=== PATIENT | male | born 1960 | race Caucasian/White ===

== ENCOUNTER → 2017-11-23 | Outpatient (CLI) | payer BC ==
--- NOTE | 2017-11-23 17:38 | CT ---
EXAMINATION TYPE: CT angio chest DATE OF EXAM: 11/23/2017 5:29 PM COMPARISON: NONE HISTORY: Left sided chest pain for [address] DLP: 471.4 mGycm Automated exposure control for dose reduction was used. CONTRAST: CTA scan of the thorax is performed with IV Contrast, patient injected with 76.5 mL of Omnipaque 350, pulmonary embolism protocol. There are 3-D post processed images.. FINDINGS: The lungs are clear of infiltrate. There is no evidence of a pulmonary mass. There is no pleural effu manish. Heart size is normal. There is no pericardial effusion. There is no mediastinal adenopathy. There are no hilar masses. Thoracic aorta appears normal. There is no evidence of aneurysm or dissection. There is normal contrast opacification of the pulmonary arteries. I see no filling defects. There is mild spurring in the thoracic spine. IMPRESSION: NEGATIVE CT ANGIOGRAM OF THE CHEST. NO EVIDENCE OF PULMONARY EMBOLISM.
== END | disposition home or self-care (01) ==
LOC: RADCTMAIN 17:01
PROVIDERS: ATTEND Internal Medicine Critical Care Medicine
DX: R07.9 Chest pain, unspecified (principal)
CPT/HCPCS: 71275; Q9967

== ENCOUNTER 2018-07-01 10:51 | Day surgery (SDC) | payer BC ==
[2018-06-25 11:43] VITALS: BMI 28.7
[~2018-07-01 10:51] MED LIST: ALBUTEROL NEB (CONC) 2.5 MG/0.5 ML INHALATION ONE; LACTATED RINGERS 1,000 ML IV ONE; LACTATED RINGERS 1,000 ML IV SCH; LIDOCAINE 2% (PF) 20 MG/ML 2 ML AMP INHALATION ONE; LIDOCAINE VISCOUS 2% 15 ML CUP MUCOUS MEM ONE
[2018-07-01 11:13] VITALS: TEMP 97.6
[2018-07-01] MEDS ORDERED: LIDOCAINE 1% 20 ML VIAL (10MG/ML) FOR IV START INTRADERMA ONE (11:34)
[2018-07-01] MEDS ORDERED: PROPOFOL 10 MG/ML 20 ML VIAL IV ONE (12:00)
[2018-07-01] MEDS ORDERED: LIDOCAINE 1% INJ 10MG/ML (20 ML MDV) ONE (12:00)
[2018-07-01 12:47] VITALS: RESP 16
--- NOTE | 2018-07-01 12:48 | PCN ---
PROCEDURE NOTE PROCEDURES: Bronchoscopy, airway examination, therapeutic lavage, BAL right middle lobe. PREOPERATIVE DIAGNOSIS: Shortness of breath and sensation of endobronchial obstruction, particularly on the left side. POSTOPERATIVE DIAGNOSIS: Shortness of breath and sensation of endobronchial obstruction, particularly on the left side. PROCEDURE: There was informed consent. There was universal timeout. The patient's procedure was done in room #1 of the endoscopy suite. [employer] provided unconscious sedation and general anesthesia. After the patient was adequately sedated being fully monitored, the bronchoscope was inserted through the right nostril. It passed through the right nasopharynx into the oropharynx. From there into the hypopharynx. The hypopharyngeal structures including anterior commissure, true cords, false cords, arytenoids, piriform sinuses right and left, vallecula and epiglottis all appeared normal. There was some crowding of the tissues down there. After topicalization, the bronchoscope was pushed through the glottic opening into the trachea. Trachea appeared relatively normal, although there were some secretions noted in the trachea. They were suctioned without difficulty. The trachea summer was sharp. Also of note was the fact that there was some tracheal collapsibility. Next, after topicalization of the right and left mainstem, the right upper lobe and its 3 segments, the right middle lobe and its 2 segments, the right lower lobe and its 5 segments, left upper lobe proper and its 2 segments, the lingula and its 2 segments and left lower lobe and its 4 segments were all evaluated. There was no endobronchial mass or tumor. There was no obstruction. There was some thin to thick secretions noted throughout. They were mostly purulent looking. They were noted more on the right than on the left side. There was mild bronchial erythema and hyperemia. We wedged the bronchoscope into the right middle lobe. The BAL took place. The patient tolerated the procedure well and the bronchoscope was withdrawn. There was no bleeding. The patient tolerated the procedure well. MMODL / IJN: [id number] /
[2018-07-01 13:02] VITALS: BP 125/68; PULSE 67
[2018-07-01 17:37] LABS: Appearance,BF Hazy; Color,BF Colorless; Nucleated Cells, Body Fluid 40 /uL; RBC, Body Fluid 655 /uL
[2018-07-01 19:33] LABS: Mononuclear WBC,Body Fluid 31 %; Polynuclear WBC,Body Fluid 34 %; Total Cells Counted,Body Fluid 100
== END 2018-07-01 13:10 | disposition home or self-care (01) ==
LOC: ORWHC2ENDO 10:51
PROVIDERS: ATTEND Internal Medicine Critical Care Medicine
DX: R06.02 Shortness of breath (principal); R09.89 Other specified symptoms and signs involving the circulatory and respiratory systems; R07.9 Chest pain, unspecified; J45.909 Unspecified asthma, uncomplicated; M48.00 Spinal stenosis, site unspecified; K58.9 Irritable bowel syndrome, unspecified; G47.30 Sleep apnea, unspecified; K21.9 Gastro-esophageal reflux disease without esophagitis; Z99.89 Dependence on other enabling machines and devices; Z79.51 Long term (current) use of inhaled steroids; Z79.899 Other long term (current) drug therapy; Z88.5 Allergy status to narcotic agent
CPT/HCPCS: 94640; 87798 ×3; 87496; 87498; 87529 ×2; 88108; 88305; 89050; 87252; 87502; 87634; 87070; 87205; 87116; 87102; 87206; 31624; J2001 ×2; J2704

== ENCOUNTER → 2018-12-15 | Outpatient (CLI) | payer BC ==
--- NOTE | 2018-12-16 01:40 | US ---
EXAMINATION TYPE: US scrotum with doppler. TECHNIQUE: Grayscale and color Doppler Duplex imaging performed of the scrotum. DATE OF EXAM: 12/15/2018 COMPARISON: NONE CLINICAL HISTORY: 58-year-old male N50.9 Disorder of male genital organs, unspecified. Left testicula r pain and swelling FINDINGS: EXAM MEASUREMENTS: TESTICLES: Right Testicle: 3.7 x 2.7 x 2.7 cm for a volume of 14.2 mL. Left Testicle: 4.0 x 2.5 x 2.7 cm for a volume of 14.5 mL. EPIDIDYMIS HEAD: Right Epididymis: 1.5 cm Left Epididymis: 1.3 cm Doppler performed to assess for testicular vascularity; good bilateral color flow and waveforms are s een. There is no evidence of testicular torsion. Presence of hydroceles: Very large on the left and moderate to large on the right. These measure: ri ght = 6.7cm, left = 11.7cm Presence of varicoceles: no IMPRESSION: 1. Very large left-sided hydrocele with fluid pocket measuring up to 12 cm moderate to large on the r ight with fluid pocket measuring up to nearly 7 cm. 2. No sonographic evidence for testicular torsion, epididymoorchitis, or testicular mass.
== END | disposition home or self-care (01) ==
LOC: RADUSWWP 16:05
PROVIDERS: ATTEND Urology Pediatric Urology
DX: N43.3 Hydrocele, unspecified (principal)
CPT/HCPCS: 76870; 93975

== ENCOUNTER → 2019-11-25 | Outpatient (CLI) | payer BC ==
--- NOTE | 2019-11-25 09:46 | CT ---
EXAMINATION TYPE: CT sinus wo con DATE OF EXAM: 11/25/2019 COMPARISON: None HISTORY: chronic sore throat/sinusitis CT DLP: 705.[address] of the paranasal sinuses was performed in the axial and coronal planes. Bone and soft tissue settings are submitted. The paranasal sinuses demonstrate normal aeration and development. Complete opacities in left maxillary sinus with the obstruction of the left ostiomeatal unit. Moderat e thickening right maxillary sinus with obstruction of the right ostiomeatal unit. Diffuse ethmoid ai r cell thickening and opacification. Underlying polyposis difficult to exclude. Mild mucosal thickeni ng involving the sphenoid and right frontal sinus. The nasal septum is midline. No bony destructive changes are seen within the field of view. IMPRESSION: Pansinusitis and/or underlying polyposis.
== END | disposition home or self-care (01) ==
LOC: RADCTMAIN 09:15
PROVIDERS: ATTEND Otolaryngology
DX: J32.4 Chronic pansinusitis (principal)
CPT/HCPCS: 70486

== ENCOUNTER → 2020-10-12 | Outpatient (CLI) | payer BC ==
--- NOTE | 2020-10-12 15:36 | US ---
EXAMINATION TYPE: US kidneys/renal and bladder DATE OF EXAM: 10/12/2020 COMPARISON: NONE CLINICAL HISTORY: R31.9 hematuria. EXAM MEASUREMENTS: Right Kidney: 11.1 x 5.5 x 5.8 cm Left Kidney: 10.8 x 6.8 x 4.8 cm Right Kidney: no hydronephrosis or masses seen Left Kidney: no hydronephrosis or masses seen Bladder: wnl Bilateral Jets seen: yes IMPRESSION: Normal renal ultrasound
== END | disposition home or self-care (01) ==
LOC: RADUSWWP 14:52
PROVIDERS: ATTEND Urology
DX: R31.9 Hematuria, unspecified (principal)
CPT/HCPCS: 76770

== ENCOUNTER → 2022-04-15 | Outpatient (CLI) | payer BC ==
--- NOTE | 2022-04-15 14:44 | P.PN ---
Subjective Progress Note Date: 04/15/22 This is a 62-year-old male patient with severe obstructive sleep apnea with an AHI of 41. The patient was last seen in my office on 04/08/2022 for ongoing difficulties with CPAP therapy. The patient was seen in the office and the patient was asked to come in to sleep center for further advice to trial different mask as the patient was having difficulties with his Airfit P10 and nasal pillows..the patient is having difficulties in finding the appropriate mask for ongoing CPAP treatment. He has the Airfit P10 and nasal pillows and this has become quite uncomfortable, not getting a good mask fit and a lot of irritation on his nostril. Based on this, his compliance has gone down. Over the past 1 year, he is using his machine approximately half of the time. He has achieved more than 4 hours 25% of the time and it averages uses around 4.1 hours. He is a CPAP pressure of 10 cm of water. Whenever he has the machine on, the treatment has been successful and his AHI is down to 3.0. He has contacted several equipment companies and he has switched masks without much luck. For that reason, is coming in for further advice. He has lost weight since the last evaluation Objective - Exam BP is 109/23, pulse is 80, respirations 18, temperature 90.3, saturation 97% on room air, Hills score is at 10, body mass index is 27, weight is 192. COPD General Appearance no diaphoresis, no respiratory distress, speech not interrupted by breaths, no dyspnea, no pallor, not cachectic, well nourished, appears well, obesity HEENT no pursed lip breathing, no jugular venous distention, no mucous membrane cyanosis, no perioral cyanosis, mallampati classification: class 1, Mallampati Classification: Class 4 (asymmetric nostrils with left one being deformed due to septal deviation.) Chest no barrel chest, no retractions, no sternocleidomastoid muscle contractions, no supraclavicular retractions, no intercostal retractions, no prolonged expiratory wheezing, no decreased air movement, no rhonchi, no hyperinflation, (normal) adventitious sounds: rales / crackles: bilaterally: midlung schafer, decreased air movement Heart no right ventricular heave, no distant heart sounds, no s3 gallop, (normal) jugular vein: jugular venous distention: by 0cm, (normal) jugular vein GI bowel sounds: hyperactive (borborygmi), bowel sounds: diminished or absent Extremities no cyanosis, no clubbing, no edema Neurologic no decreased mental status, no somnolence, no confusion Assisstive Devices: ambulates with no assitive devices Gait and Mobility: gait WNL, full weight bearing Skin General Appearance normal, (normal) normal except as noted Assessment and Plan Plan: Obstructive sleep apnea. The patient has severe MIGUEL with an AHI of 42. The patient currently is on a CPAP pressure of 10. since last year, the patient's compliance he has dropped considerably. On today's evaluation, I noted that the Airfit P10 and is not a good mask fit for him. The patient is looking for alternatives. . I noted that the patient's compliance has dropped significantly since his last evaluation. This is related to the poor mask interface and poor mask irritation as discussed above. Based on all this, mask and the patient come in to the sleep center for a mask fit. The patient will be trialed on dreamware On the nose medium-size and the patient was able to achieve a good mask fit. A sample was given and the patient was asked to continue CPAP therapy with the dreamware under the nose medium-size mask. He is committed to treatment as long as he finds the appropriate mask interface. He has lost weight. I'm going going to keep this patient on a APAP mode setting in a day maximum pressure of 10 and a minimum pressure of 4. This should help also with his overall compliancy. We also discussed other alternatives including an oral appliance and reactive stimulation therapy through [facility], and those need to be considered if the patient absolutely declines or fail CPAP therapy. For now, the plan is to continue making adjustments to be achieve better success.
== END ==
LOC: SLEEP 13:08
PROVIDERS: ATTEND Internal Medicine Critical Care Medicine
DX: G47.33 Obstructive sleep apnea (adult) (pediatric) (principal); Z99.89 Dependence on other enabling machines and devices; Z88.5 Allergy status to narcotic agent; Z88.6 Allergy status to analgesic agent

== ENCOUNTER 2023-03-25 07:08 | Day surgery (SDC) | payer BC ==
[2023-03-20 12:46] VITALS: BMI 27.2
[~2023-03-25 07:08] MED LIST changes: -ALBUTEROL NEB (CONC) 2.5 MG/0.5 ML INHALATION ONE; -LACTATED RINGERS 1,000 ML IV ONE; +LIDOCAINE 1% (10MG/ML) FOR IV START INTRADERMA PRN; -LIDOCAINE 2% (PF) 20 MG/ML 2 ML AMP INHALATION ONE; -LIDOCAINE VISCOUS 2% 15 ML CUP MUCOUS MEM ONE
[2023-03-25 07:45] VITALS: RESP 16; TEMP 97.2
[2023-03-25 07:51] LABS: Glucose,Whole Blood 202 mg/dL (70-110)
[2023-03-25] MEDS ORDERED: LIDOCAINE 2% INJ 20 MG/ML (2 ML VIAL) ONE (08:01)
[2023-03-25] MEDS ORDERED: PROPOFOL 10 MG/ML 20 ML VIAL IV ONE (08:01)
--- NOTE | 2023-03-25 08:26 | P.PCN ---
Date of Procedure: 03/25/23 Procedure(s) Performed: BRIEF HISTORY: Patient is a 63-year-old pleasant white male scheduled for an elective colonoscopy as a part of evaluation of change in bowel habits for the last 6 months duration. His been having intermittent episodes of diarrhea with intermittent rectal bleeding. PROCEDURE PERFORMED: Colonoscop with random biopsies y. PREOPERATIVE DIAGNOSIS: Chronic diarrhea. IV sedation per Anesthesia. PROCEDURE: After informed consent was obtained, the patient, was brought into the endoscopy unit. IV sedation was administered by Anesthesia under continuous monitoring. Digital rectal examination was normal. Initially the Olympus CF-160 flexible video colonoscope was then inserted in the rectum, gradually advanced into the cecum without any difficulty. Careful examination was performed as the scope was gradually being withdrawn. Ileocecal valve and the appendiceal orifice were visualized and appeared normal. Prep was excellent. Mucosa of the cecum, ascending colon, transverse colon, appeared normal. The descending colon there was a 3 mm polyp that was removed by cold biopsy. Rest of the descending colon, sigmoid colon, and rectum appeared normal. Random biopsies were done from ascending and descending colon to rule out microscope/collagenous colitis Retroflexion was performed in the rectum and small internal hemorrhoids were seen. The patient tolerated the procedure well. IMPRESSION: 3 mm descending colon polyp status post cold biopsy Rest of the colon appeared normal Small internal hemorrhoids. RECOMMENDATIONS: Findings of this examination were discussed with the patient as well as his family. He was advised to follow with the biopsy results. If the biopsy report adenoma he can have a repeat colonoscopy in 5 years. He will be seen in office in 3-4 weeks.
[2023-03-25 08:32] VITALS: BP 110/74; PULSE 63
== END 2023-03-25 09:14 | disposition home or self-care (01) ==
LOC: ORWHC2ENDO 07:08
PROVIDERS: ATTEND Internal Medicine Gastroenterology
DX: D12.4 Benign neoplasm of descending colon (principal); K62.5 Hemorrhage of anus and rectum; K52.9 Noninfective gastroenteritis and colitis, unspecified; K64.8 Other hemorrhoids; J45.909 Unspecified asthma, uncomplicated; E11.9 Type 2 diabetes mellitus without complications; K21.9 Gastro-esophageal reflux disease without esophagitis; Z88.0 Allergy status to penicillin; Z79.899 Other long term (current) drug therapy
CPT/HCPCS: 88305; 45380; J2704; J2001

== ENCOUNTER → 2023-08-21 | Outpatient (CLI) | payer BC ==
--- NOTE | 2023-08-21 21:45 | MR ---
EXAMINATION TYPE: MR hip LT wo con DATE OF EXAM: 08/21/2023 COMPARISON: Prior CT chest abdomen pelvis May 19, 2023 HISTORY: Left hip pain and limited range of movement. Standard multiplanar, multisequence MRI departmental protocol Multiplanar, multisequence images of the pelvis focusing on left hip were acquired without contrast. FINDINGS: Symmetric [id number] axial joint space loss in both hips is redemonstrated. There is no significant spurring seen bilaterally. There is a oval 11 mm well-circumscribed lesion of low T1 a nd increased T2 signal in the inferior medial left femoral head corresponding to the lucent lesion wi th punctate calcification on CT coronal image 62. No adjacent soft tissue mass is seen. No cortical b reakthrough clearly identified. Lesion of uncertain etiology but favored nonaggressive. No significan t joint effusions are present bilaterally. No suspicious increased T2 signal edema is seen. Mild incr eased T2 signal level of the greater trochanters is present bilaterally consistent with a insertional tendinosis. No serpiginous T1 signal is identified to suggest avascular necrosis. No groin adenopath y is seen. Muscle bulk is symmetric and maintained. No abnormal bowel dilatation. No pelvic fluid col lection. Small fat-containing left inguinal hernia. IMPRESSION: [id number]-[id number] degenerative changes of left hip joint are present as detailed above.
--- NOTE | 2023-08-21 22:02 | MR ---
EXAMINATION TYPE: MR lumbar spine wo con DATE OF EXAM: 08/21/2023 COMPARISON: Prior CT May 19, 2023 HISTORY: Low back pain that radiates down left leg. TECHNIQUE: Multiplanar, multisequence imaging of the lumbar spine is performed without IV contrast. FINDINGS: Sagittal images of the lumbar spine show vertebral body heights to remain satisfactory. Ali gnment is stable and straightened. Multilevel disc desiccation is seen with mild to moderate disc spa ce narrowing and anterior spurring at L1-L2 level redemonstrated. The conus medullaris is normal in position and signal ending and inferior L1 level. The bone marrow signal intensity is within normal limits. Axial images show T12-L1 level to appear within normal limits. Axial images at L1-L2 level show mild broad disc bulge minimally effacing anterior thecal sac. Patent bilateral neural foramina are seen. Axial images at L2-L3 level appear within normal limits. Axial images at L3-L4 levels with mild facet arthropathy and ligamentum flavum hypertrophy minimally effacing left posterolateral thecal sac. Patent bilateral neural foramina. Axial images at L4-L5 level mild to moderate facet arthropathy with broad-based posterior disc protru manish mildly facing anterior thecal sac. Foraminal disc protrusion component causing moderate to sever e inferior left-sided neural foraminal narrowing and some encroachment on the inferior left L4 nerve. Right-sided neural foramina is patent. Axial images at L5-S1 level show mild/moderate facet arthropathy bilaterally. Spinal canal is preserv ed. Bilateral neural foramina are patent. Paraspinal muscle bulk is maintained. IMPRESSION: Straightening of the lumbar spine with multilevel degenerative change seen as detailed ab ove. Attention to L4-L5 level where there is eccentric left foraminal disc protrusion causing moderat e to severe left-sided neural foraminal narrowing and encroachment along the inferior left L4 nerve l ikely accounting for patient's left-sided radiculopathy type symptoms.
== END | disposition home or self-care (01) ==
LOC: RADMRIMAIN 20:45
PROVIDERS: ATTEND Family Medicine
DX: M16.12 Unilateral primary osteoarthritis, left hip (principal); M51.26 Other intervertebral disc displacement, lumbar region; M47.816 Spondylosis without myelopathy or radiculopathy, lumbar region; M99.73 Connective tissue and disc stenosis of intervertebral foramina of lumbar region; M54.2 Cervicalgia
CPT/HCPCS: 72148

== ENCOUNTER → 2023-08-24 | Outpatient (CLI) | payer BC ==
--- NOTE | 2023-08-25 13:14 | MR ---
EXAMINATION TYPE: MR cspine/tspine wo con DATE OF EXAM: 08/24/2023 7:10 PM CLINICAL INDICATION:Male, 63 years old with history of M54.6,M54.2,M54.50,M25.552; PHH, Neck, mid josh k and chest pain COMPARISON: 05/19/2023 TECHNIQUE: Multi planar, multi sequence imaging was performed utilizing: T1-weighted, T2-weighted, a nd turbo inversion recovery imaging of the cervical and thoracic spine. MR contrast: IV Contrast: None. FINDINGS: CERVICAL: Alignment: The cervical vertebral bodies have preserved heights. Alignment is within normal limits gi alyse patient positioning. Bones: Scattered Modic endplate changes with osteophytes and disc space narrowing. Multilevel degener ative disc disease is noted and most pronounced at the C4-C7 vertebral levels. Cord: The spinal cord is unremarkable with regards to their signal intensity and morphology. Discs: Multilevel disc desiccation is present. C2-C3: No significant disc pathology. The spinal canal is patent. Bilateral facet and uncovertebral joint arthropathy are present with mild bilateral neural foraminal stenosis. C3-C4: A disc osteophyte complex is present which impresses upon the spinal cord anteriorly. Spinal c ord signal is maintained. There is at least moderate spinal canal stenosis. Bilateral facet and uncov ertebral joint arthropathy are present with mild to moderate left and moderate to severe right neural foraminal stenosis. C4-C5: A disc osteophyte complex is present which impresses upon the spinal cord anteriorly. Spinal c ord signal is maintained. Bilateral facet and uncovertebral joint arthropathy are present with moder ate left and mild to moderate neural foraminal stenosis. C5-C6: A disc osteophyte complex is present which impresses upon the spinal cord anteriorly. Spinal c ord signal is maintained. Bilateral facet and uncovertebral joint arthropathy are present with moder ate to severe right and moderate left neural foraminal stenosis. C6-C7: A disc osteophyte complex is present which impresses upon the spinal cord anteriorly. Spinal c ord signal is maintained. No neural foraminal stenosis. C7-T1: No significant disc pathology. The spinal canal is patent. No neural foraminal stenosis. THORACIC: There is scoliosis changes to the thoracic spine which is disc dextroscoliosis apex at T7-T 8. Facet joint arthropathy with neural foraminal stenosis worse at T9-T10 with at least moderate bila teral neural foraminal stenosis right greater than left. Additionally there is mild to moderate T8-T9 and T10-T11 neural foraminal stenosis. There is no evidence for significant spinal canal stenosis within the thoracic spine. T7-T8 central d isc protrusion without significant spinal canal stenosis osteophytes which mildly narrows the spinal cord at T9-T10 and T10-T11. Other: None. IMPRESSION: Cervical: 1. Multilevel cervical spine discussed by complex's which impresses upon the anterior spine. Spinal cord signal is maintained. 2. Cervical disc degeneration changes with multiple levels of moderate and worse neural foraminal st enosis. 3. Spinal cord stenosis worse at C3-C4 with at least moderate. Thoracic: 1. Multilevel degeneration changes with neural foraminal stenosis worse from T8 to T11 with at least moderate T9-T10 neural foraminal stenosis bilaterally. 2. Central disc protrusion at T7-T8 without significant spinal canal stenosis.
== END | disposition home or self-care (01) ==
LOC: RADMRIMAIN 17:27
PROVIDERS: ATTEND Family Medicine
DX: M48.02 Spinal stenosis, cervical region (principal); M50.31 Other cervical disc degeneration, high cervical region; M25.78 Osteophyte, vertebrae; M51.34 Other intervertebral disc degeneration, thoracic region; M99.71 Connective tissue and disc stenosis of intervertebral foramina of cervical region; M99.72 Connective tissue and disc stenosis of intervertebral foramina of thoracic region; M51.24 Other intervertebral disc displacement, thoracic region; M25.552 Pain in left hip
CPT/HCPCS: 72141; 72146

== ENCOUNTER → 2023-12-09 | Outpatient (CLI) | payer BC ==
[2023-12-09 11:44] VITALS: BP 125/78; PULSE 64; RESP 16; TEMP 97.3
--- NOTE | 2023-12-14 07:39 | P.PAINPG ---
PQRS Measure Charge Sheet Comment: HISTORY OF PRESENT ILLNESS: A 63 yr old female as a referral from [facility] presents today w severe and chronic LBP x 3 yrs secondary to DDD, spondylosis and facet arthropathy without myelopathy for evaluation. Pt states pain level is provoked at 10 /10 in intensity, constant, localized in the lower lumbar spine, predominantly axial, dull in character w occasional shooting pain towards the L hip and LLE. Pain is provoked by lifting. Pain is alleviated by PT x 6 wks in 2020, massage therapy monthly x 1 yr in 2021, chiropractic treatments x 10 wks which ended in Aug 2023, ice, medications (Tramadol, Ibu), topical patches, repositioning and rest. Oswestry axial pain score at 25. PMH: OA, GERD, NIDDM II, Asthma PSH: Bronchoscopy (2017), Endoscopy (2022) SH: Negative x3 FH: Non contributory All: See list Meds: See list REVIEW OF ORGAN SYSTEMS: CONSTITUTIONAL: No fevers or chills. No recent weight loss. NEUROLOGICAL: + numbness and tingling along the distal extremities. No seizure disorders or headaches. MUSCULOSKELETAL: + pain PSYCHIATRIC: Denies current depression or suicidal thoughts. Physical Examinations : Constitutional : Cooperative , not in acute distress . Neurologic : Cranial nerve II to XII intact. No focal neurological deficits. Psychiatric : alert & oriented x 3. Matching mood & appropriate affect. Judgment & insight intact. Musculoskeletal : Cervical Spine Motor strength in the deltoid and biceps: Normal right side. Normal Left side Motor strength biceps and the wrist extensors: Normal right side . Normal left side Motor strength in the triceps muscle: Normal right side. Normal left side Deep tendon reflexes: Normal at the biceps. Normal at Brachioradialis. Normal at triceps Vertebral body tenderness to deep palpation Cervical facet loading test: positive bilaterally Spurling test: positive bilaterally Neck distraction test: positive bilaterally Yair sign: positive bilaterally Lumbar spine Motor strength lower extremities ,thigh and legs 5/5 Right side , 5/5 Left side Deep tendon reflexes : Normal Knee Jerk. Normal Ankle Jerk Vertebral body tenderness over L4 Barnett Test positive Lumbar facet Loading Test: positive Right / positive Left Range of motion of the lumbar spine Flexion 30 degrees, extension 10 degrees Straight Leg Raise test: Left/ Right positive at <35 degrees Prachi test: positive right / positive left. Severe tenderness over the Sacroiliac joint on the Right / Left sides Gaenslen test: positive bilaterally Seated flexion test: positive bilaterally. Sacral spine : Severe tenderness over the Sacroiliac joint: right side / left side Range of motion: Flexion of the lumbar spine <60 degrees Range of motion: Extension of the lumbar spine <20 degrees Gaenslen's Test positive Prachi test: positive right side / left side Thigh Thrust Test Sacral Thrust Test Imaging: MRI noncontrast of the lumbar spine from 08/21/23 reviewed Assessment/ Plan : Lumbar DDD Recommendation of MY L4-L5 #1. May need a series of injections for optimal pain relief. Risks, benefits of procedure discussed and patient verbalized mann espinoza. Admits to anti- coagulant use or medical history of diabetes. Protocol for discontinuation/ continuation of medications shoshana procedure discussed. All questions answered. I have spent greater than 30 minutes on patient care today. Dr Cuevas was available by phone for the evaluation of this patient. The time was used to review the medical records including relevant urine studies and Prescription history (MAPs), review of the available imaging, evaluation and examination of the patient, coordination of care with the medical staff and if applicable referring physicians, as well as creation of the medical record PQRS Narrative: Smoking Status Never smoker Home Medications: Ambulatory Orders Budesonide-Formot 160-4.5 Mcg [Symbicort 160-4.5 Mcg Inhaler] 2 puff INHALATION BID 06/25/18 Montelukast [Singulair] 10 mg PO HS 06/25/18 Albuterol Sulfate [Proair Respiclick] 1 puff INHALATION Q6H PRN 03/20/23 Famotidine [Pepcid] 40 mg PO BID 03/20/23 metFORMIN HCL [Glucophage] 1,000 mg PO BID 03/20/23 Controlled Substance Measures - Controlled Substance Measures Is patient prescribed a controlled substance at discharge?: No
== END ==
LOC: PNWHC3 10:30
PROVIDERS: ATTEND Specialist
DX: M51.16 Intervertebral disc disorders with radiculopathy, lumbar region (principal); M47.26 Other spondylosis with radiculopathy, lumbar region; E11.9 Type 2 diabetes mellitus without complications; M19.90 Unspecified osteoarthritis, unspecified site; K21.9 Gastro-esophageal reflux disease without esophagitis; J45.909 Unspecified asthma, uncomplicated; Z79.84 Long term (current) use of oral hypoglycemic drugs; Z79.899 Other long term (current) drug therapy; Z88.5 Allergy status to narcotic agent; Z88.8 Allergy status to other drugs, medicaments and biological substances
CPT/HCPCS: 99211

== ENCOUNTER 2023-12-22 06:23 | Day surgery (SDC) | payer BC ==
[2023-12-18 13:40] VITALS: BMI 27.2
[2023-12-22] MEDS ORDERED: LACTATED RINGERS 1,000 ML IV SCH (06:36)
[2023-12-22 06:54] LABS: Glucose,Whole Blood 244 mg/dL (70-110)
[2023-12-22 07:02] VITALS: RESP 18; TEMP 97.3
[2023-12-22] MEDS ORDERED: ROPIVACAINE 5MG/ML 20ML VIAL ONE (07:46)
[2023-12-22] MEDS ORDERED: methylPREDNISolone ACETATE 80 MG/ML 1 ML VIAL ONE (07:46)
[2023-12-22] MEDS ORDERED: IOPAMIDOL M300 15ML VIAL ONE (07:46)
--- NOTE | 2023-12-22 08:09 | P.PCN ---
Description of Procedure: PREOPERATIVE DIAGNOSIS: 1- Lumbar Degenerative Disc Diseases 2-Lumbar spondylosis with Facet arthropathy without myelopathy. 3-lumbar spinal stenosis POSTOPERATIVE DIAGNOSIS: 1-lumbar degenerative disc disease. 2-lumbar spondylosis with facet arthropathy without myelopathy. 3-lumbar spinal stenosis. PROCEDURE Injection of radial contrast material into L45 interspace, interpretation of epidurogram, injection of steroid at L4 5 epidural space under fluoroscopic guidance. ANESTHESIA: Lidocaine 1% subcutaneously. In OR continuous pulse ox, EKG, blood pressure and volleyball complication was maintained with the patient. EBL: Minimal PROCEDURE INDICATION: Before the procedure were discussed with the patient detailed procedure, alternatives, complications including infection, bleeding, nerve damage, paralysis all of which could be permanent. Patient understands and all questions were answered. PROCEDURE DESCRIPTION : After getting consent, patient in OR in prone position. Back was prepped with chlorhexidine and draped in sterile fashion. After injecting 10 mL of 1% lidocaine subcutaneously, a 20-gauge Tuohy needle was introduced at L4 5 interspace with loss of resistance technique using a syringe filled with air. Negative CSF, negative blood, negative paresthesia. Needle position was confirmed with AP and lateral view of the fluoroscope. After repeat negative aspiration 2 mL of Omnipaque 200 water soluble contrast was injected. Contrast was noted in the epidural space. No contrast was noted into intrathecal or intravascular space. After repeat negative aspiration 6 mL solution was injected intermittently which consists of 5 mL of preservative-free normal saline mixed with 1 mL of 80 mg Depo-Medrol. Needle was withdrawn intact. Skin was cleansed and Band-Aids was applied. DISPOSITION / PLANS: The patient tolerated the procedure well. No complication. The patient was placed in a supine position and transferred to the recovery area in a stable condition for observation. There was no evidence of lower extremity motor or sensory deficit after the procedure. Patient was discharged from the recovery room after meeting discharge criteria. Home discharge instructions were given to the patient by the staff. The patient was reexamined prior to discharge. The patient will schedule a follow up in the clinic in 2-4 weeks.
[2023-12-22 08:38] VITALS: BP 125/74; PULSE 71
--- NOTE | 2023-12-22 16:41 | FL ---
EXAMINATION TYPE: FL guided pain mgmt statistic Intraoperative/procedural fluoroscopic services were provided. Total fluoroscopy time is 8 seconds with a total of 2 submitted images to PACS. Please see the operative/procedural note for further details. DAP: [id number] mGym2
== END 2023-12-22 08:30 | disposition home or self-care (01) ==
LOC: ORPAIN 06:23
PROVIDERS: ATTEND Pain Medicine Interventional Pain Medicine
DX: M51.36 Other intervertebral disc degeneration, lumbar region (principal); M47.816 Spondylosis without myelopathy or radiculopathy, lumbar region; M48.061 Spinal stenosis, lumbar region without neurogenic claudication; E11.9 Type 2 diabetes mellitus without complications; Z79.84 Long term (current) use of oral hypoglycemic drugs; Z88.5 Allergy status to narcotic agent
CPT/HCPCS: 62323; J1040; Q9967; J2795

== ENCOUNTER → 2024-01-07 | Outpatient (CLI) | payer BC ==
[2024-01-07 11:09] VITALS: BP 106/72; PULSE 59; RESP 16; TEMP 97.1
--- NOTE | 2024-01-07 12:51 | P.PAINPG ---
PQRS Measure Charge Sheet Comment: HISTORY OF PRESENT ILLNESS: A 63 yr old female presents today w severe and chronic LBP x 3 yrs secondary to DDD, spondylosis and facet arthropathy without myelopathy for evaluation s/p MY L4-L5 #1. Pt states he experienced 80% pain relief x 3 wks s/p procedure. Pt states pain level is provoked at 1 /10 in intensity, constant, localized in the lower lumbar spine, predominantly axial, dull in character w occasional shooting pain towards the L hip and LLE. Pain is provoked by lifting. Pain is alleviated by PT x 6 wks in 2020, massage therapy monthly x 1 yr in 2021, chiropractic treatments x 10 wks which ended in Aug 2023, ice, medications, topical patches, repositioning and rest. Oswestry axial pain score at 21. Interventional procedures include MY L4-L5 x1 Medications include Tramadol, Ibu REVIEW OF ORGAN SYSTEMS: CONSTITUTIONAL: No fevers or chills. No recent weight lo ss. NEUROLOGICAL: + numbness and tingling along the distal extremities. No seizure disorders or headaches. MUSCULOSKELETAL: + pain PSYCHIATRIC: Denies current depression or suicidal thoughts. Physical Examinations : Constitutional : Cooperative , not in acute distress . Neurologic : Cranial nerve II to XII intact. No focal neurological deficits. Psychiatric : alert & oriented x 3. Matching mood & appropriate affect. Judgment & insight intact. Musculoskeletal : Cervical Spine Motor strength in the deltoid and biceps: Normal right side. Normal Left side Motor strength biceps and the wrist e xtensors: Normal right side . Normal left side Motor strength in the triceps muscle: Normal right side. Normal left side Deep tendon reflexes: Normal at the biceps. Normal at Brachioradialis. Normal at triceps Vertebral body tenderness to deep palpation Cervical facet loading test: positive bilaterally Spurling test: positive bilaterally Neck distraction test: positive bilaterally Yair sign: positive bilaterally Lumbar spine Motor strength lower extremities ,thigh and legs 5/5 Right side , 5/5 Left side Deep tendon reflexes : Normal Knee Jerk. Normal Ankle Jerk Vertebral body tenderness over L4 Barnett Test positive Lumbar facet Loading Test: positive Right / positive Left Range of motion of the lumbar spine Flexion 30 degrees, extension 10 degrees Straight Leg Raise test: Left/ Right positive at <35 degrees Prachi test: positive right / positive left. Severe tenderness over the Sacroiliac joint on the Right / Left sides Gaenslen test: positive bilaterally Seated flexion test: positive bilaterally. Sacral spine : Severe tenderness over the Sacroiliac joint: right side / left side Range of motion: Flexion of the lumbar spine <60 degrees Range of motion: Extension of the lumbar spine <20 degrees Gaenslen's Test positive Prachi test: positive right side / left side Thigh Thrust Test Sacral Thrust Test Imaging: MRI noncontrast of the lumbar spine from 08/21/23 reviewed Assessment/ Plan : Lumbar DDD Will manage residual pain and may RTC on an as needed basis. All questions answered. I have spent greater than 30 minutes on patient care today. Dr Cuevas was available by phone for the evaluation of this patient. The time was used to review the medical records including relevant urine studies and Prescription history (MAPs), review of the available imaging, evaluation and examination of the patient, coordination of care with the medical staff and if applicable referring physicians, as well as creation of the medical record PQRS Narrative: Smoking Status Never smoker Hx Alcohol Use (MH) No Home Medications: Ambulatory Orders Budesonide-Formot 160-4.5 Mcg [Symbicort 160-4.5 Mcg Inhaler] 2 puff INHALATION BID 06/25/18 Montelukast [Singulair] 10 mg PO HS 06/25/18 Albuterol Sulfate [Proair Respiclick] 1 puff INHALATION Q6H PRN 03/20/23 Famotidine [Pepcid] 40 mg PO BID 03/20/23 metFORMIN HCL [Glucophage] 1,000 mg PO DAILY 03/20/23 Ibuprofen [Advil] 200 mg PO DIRECTED PRN 12/18/23 Controlled Substance Measures - Controlled Substance Measures Is patient prescribed a controlled substance at discharge?: No
== END ==
LOC: PNWHC3 10:43
PROVIDERS: ATTEND Specialist
DX: M51.36 Other intervertebral disc degeneration, lumbar region (principal); M47.816 Spondylosis without myelopathy or radiculopathy, lumbar region; Z88.5 Allergy status to narcotic agent
CPT/HCPCS: 99211

== ENCOUNTER → 2024-01-13 | Outpatient (CLI) | payer BC, OTHER ==
--- NOTE | 2024-01-13 13:52 | XR ---
EXAMINATION TYPE: XR chest 2V DATE OF EXAM: 01/13/2024 COMPARISON: 01/12/2021 TECHNIQUE: PA and lateral views submitted. HISTORY: Cough FINDINGS: The lungs are clear and there is no pneumothorax, pleural effusion, or focal pneumonia. Heart size normal and no overt failure. Osseous structures demonstrate hypertrophic and degenerative changes of the spine. IMPRESSION: 1. No acute process.
== END | disposition home or self-care (01) ==
LOC: RADXRMAIN 13:06
PROVIDERS: ATTEND Otolaryngology
DX: R05.3 Chronic cough (principal)
CPT/HCPCS: 71046

== ENCOUNTER → 2024-01-19 | Outpatient (CLI) | payer BC, OTHER ==
--- NOTE | 2024-01-19 12:35 | FL ---
EXAMINATION TYPE: FL barium swallow DATE OF EXAM: 01/19/2024 COMPARISON: None HISTORY: Pain in throat TECHNIQUE: A double air contrast esophagram study is performed. FINDINGS: The esophagus dilates normal caliber and has normal contour the gastroesophageal junction. Gastroesop hageal junction opens to normal caliber. There is complete stripping esophageal bolus in the horizont al drinking position. IMPRESSION: 1. Unremarkable esophagram
== END | disposition home or self-care (01) ==
LOC: RADUSWWP 09:12
PROVIDERS: ATTEND Otolaryngology
DX: R07.0 Pain in throat (principal)
CPT/HCPCS: 74220

== ENCOUNTER → 2024-01-19 | Outpatient (CLI) | payer BC, OTHER ==
--- NOTE | 2024-01-25 08:40 | CT ---
EXAMINATION TYPE: CT facial bones wo con CT DLP: 581.4 mGycm, Automated exposure control for dose reduction was used. DATE OF EXAM: 01/19/2024 9:05 AM COMPARISON: CT 11/25/2019. CLINICAL INDICATION:Male, 63 years old with history of J32.9 CHRONIC SINUSITIS; PHH, sinusitis TECHNIQUE: Multiple unenhanced axial CT images were obtained of the facial bones soft tissue and bone windows. Coronal, axial and sagittal reformatted images were also provided in soft tissue and bone windows and submitted for interpretation. FINDINGS: The paranasal sinuses demonstrate normal aeration and development. There appear to be operative openings in the medial maxillary sinus smiley bilaterally. As a result, t he [place] ostiomeatal units are essentially obliterated. Open communication seen between the maxillar y sinuses and the lateral nasal passages bilaterally. There is moderate lobular peripheral mucosal thickening throughout the maxillary sinuses, which is si milar on the right but relatively decreased on the left compared to prior. Moderate mucosal thickening throughout the inferior frontal, bilateral ethmoid, and sphenoid sinuses suggesting chronic pansinus disease. No significant amount of superimposed fluid is seen. Underlying polyposis not excluded. No acute osseous abnormality identified. Partially seen mastoid air cells are clear. Orbits appear sy mmetric and unremarkable. IMPRESSION: 1. Postoperative changes as above. 2. Pansinus mucosal thickening, with or without polyposis.
== END | disposition home or self-care (01) ==
LOC: RADCTMAIN 08:46
PROVIDERS: ATTEND Otolaryngology
DX: J34.89 Other specified disorders of nose and nasal sinuses (principal); J32.9 Chronic sinusitis, unspecified
CPT/HCPCS: 70486

== ENCOUNTER → 2024-02-17 | Outpatient (CLI) | payer BC, OTHER ==
--- NOTE | 2024-02-23 16:02 | CT ---
EXAMINATION TYPE: CT cervical spine wo con CT DLP: 642 mGycm, Automated exposure control for dose reduction was used. DATE OF EXAM: 02/17/2024 3:01 PM COMPARISON: None.. CLINICAL INDICATION:Male, 64 years old with history of M47.812 SPONDYLOSIS W/O MYELOPATHY OR RADICULO PATH; PHH, neck pain TECHNIQUE: Axial CT images from the skull base to the inferior aspect of T2 we obtained without intra venous contrast. Coronal and sagittal reformatted images were also reviewed. Contrast used: mL of , (if blank None) Oral contrast used: (if blank None) FINDINGS: Fracture: None. Osseous structures: Unremarkable Vertebral alignment: Alignment within normal limits. Spinal canal/Neural Foramina: Multilevel degenerative disc disease. Prominent central posterior disc osteophyte at C4-C5 narrowing the central canal to 6 mm. Smaller, eccentric to the left, disc osteoph yte producing left-sided narrowing of the central canal at C3 to-C3. Multilevel facet degenerative change and endplate spondylosis. No evidence for significant neural foraminal stenosis. Neck soft tissues: Prevertebral soft tissues are within normal limits. Other: The airway is patent. The lung apices are clear. IMPRESSION: 1. No evidence of cervical spine fracture. 2. Moderately pronounced central canal stenosis due to disc osteophyte. C4-C5 3. Multilevel facet degenerative change and degenerative disc disease and endplate spondylosis.
== END | disposition home or self-care (01) ==
LOC: RADCTMAIN 13:21
PROVIDERS: ATTEND Orthopaedic Surgery
DX: M47.812 Spondylosis without myelopathy or radiculopathy, cervical region (principal); M50.30 Other cervical disc degeneration, unspecified cervical region; M25.78 Osteophyte, vertebrae
CPT/HCPCS: 72125